=== PATIENT | female | born 1995 | race African-American/Black ===

== ENCOUNTER 2017-03-25 23:37 | Emergency (ER) | payer MEDICAID ==
[~2017-03-25] VITALS: Ht 175.3 cm; Wt 86.2 kg
[2017-03-26 06:00] VITALS: BP 122/64
== END 2017-03-26 06:10 | disposition home or self-care (01) ==
LOC: ER 23:37
DX: M22.8X1 Other disorders of patella, right knee (principal)
CPT/HCPCS: 73562; 99284; L1830